=== PATIENT | female | born 1995 | race Two or more races ===

== ENCOUNTER 2024-03-12 15:03 | Outpatient (CLI) | payer BC | END 2024-03-12 15:04 | disposition home or self-care (01) | LOC: SCSRAD 15:03 | PROVIDERS: ATTEND Family Medicine | DX: M54.6 Pain in thoracic spine (principal); M54.50 Low back pain, unspecified | CPT/HCPCS: 71046; 72072; 72100 ==

== ENCOUNTER 2025-07-24 15:18 | Outpatient (CLI) | payer BC | END 2025-07-24 15:19 | disposition home or self-care (01) | LOC: SCSMRI 15:18 | PROVIDERS: ATTEND Family Medicine Sports Medicine | DX: M25.462 Effusion, left knee (principal); S83.412A Sprain of medial collateral ligament of left knee, initial encounter; M25.862 Other specified joint disorders, left knee ==